=== PATIENT | male | born 1985 ===

== ENCOUNTER 2022-01-14 05:58 | Day surgery (SDC) | payer OTHER ==
[~2022-01-14 05:58] MED LIST: CLEOCIN HCL300 MG PO; HUMALOG100 UNIT/2; LANTUS SOL100 UNIT/1
== END 2022-01-14 11:25 | disposition home or self-care (01) ==
LOC: CIR.AMB 05:58
PROVIDERS: ATTEND Surgery Surgery of the Hand
DX: S56.428A Laceration of extensor muscle, fascia and tendon of left little finger at forearm level, initial encounter (principal); E10.9 Type 1 diabetes mellitus without complications; E78.5 Hyperlipidemia, unspecified